=== PATIENT | female | born 1995 | race Caucasian/White ===

== ENCOUNTER 2016-07-09 09:47 | Emergency (ER) | payer SELFPAY | END 2016-07-09 12:38 | disposition home or self-care (01) | LOC: D.ER 09:47 | DX: T63.331A Toxic effect of venom of brown recluse spider, accidental (unintentional), initial encounter (principal); Y92.019 Unspecified place in single-family (private) house as the place of occurrence of the external cause ==

== ENCOUNTER 2016-08-14 09:51 | Emergency (ER) | payer MEDICAID ==
[2016-08-14 10:22] LABS: BASOPHILS 0.2 % (0.0-2.0); EOSINOPHILS 0.2 % (0-7); HEMATOCRIT 36.8 % (36.0-48.0); HEMOGLOBIN 12.5 g/dL (12-16); IMMATURE GRANULOCYTES 0.2 % (0-5); LYMPHOCYTES 24.1 % (15-50); MCH 31.6 pg (26.0-34.0); MCV 93.2 fL (80.0-100.0); MEAN PLATELET VOLUME 11.2 fL (7.4-10.4); MONOCYTES 5.5 % (2-11); NEUTROPHILS 69.8 % (40-80); PLATELET COUNT 235 10x3/uL (130-400); RBC 3.95 10x6/uL (4.00-5.40); RDW 12.4 % (11.5-14.5); WBC 9.3 10x3/uL (4.8-10.8)
[2016-08-14 10:32] LABS: UDS - AMPHET POSITIVE QUAL (NEGATIVE); UDS - BARB NEGATIVE QUAL (NEGATIVE); UDS - BENZO NEGATIVE QUAL (NEGATIVE); UDS - COCAINE POSITIVE QUAL (NEGATIVE); UDS - METH NEGATIVE QUAL (NEGATIVE); UDS - OPIATE NEGATIVE QUAL (NEGATIVE); UDS - PCP NEGATIVE QUAL (NEGATIVE); UDS - THC NEGATIVE QUAL (NEGATIVE)
[2016-08-14 10:42] LABS: ALBUMIN 3.3 g/dL (3.4-5.0); ALKALINE PHOSPHATASE 55 U/L (46-116); ALT (SGPT) 17 U/L (10-68); BILIRUBIN - TOTAL 0.57 mg/dL (0.2-1.3); CALC OSMOLALITY 274 mosm/kg (275-300); CALCIUM 9.1 mg/dL (8.5-10.1); CARBON DIOXIDE 16.4 mmol/L (21.0-32.0); CHLORIDE - SERUM 103 mmol/L (98-107); CREATININE - SERUM 0.6 mg/dL (0.6-1.3); PROTEIN - SERUM 7.7 g/dL (6.4-8.2); SODIUM 139 mmol/L (136-145); UREA NITROGEN 10 mg/dL (7-18); eGFR NON AFRICAN AMERICAN > 90 mL/min (90-120)
[2016-08-14 10:44] LABS: GLUCOSE 61 mg/dL (74-106)
[2016-08-14 11:30] LABS: APPEARANCE HAZY (CLEAR); COLOR YELLOW (YELLOW)
[2016-08-14 11:31] LABS: AMORPHOUS SEDIMENT <1+ /lpf (NONE SEEN); BACTERIA MODERATE /hpf (NONE SEEN); MUCUS <1+ /lpf (NONE SEEN); RED CELLS - URINE OCC /hpf (0-5)
[2016-08-14 11:32] LABS: BILIRUBIN NEGATIVE (NEGATIVE); GLUCOSE NEGATIVE (NEGATIVE); KETONE LARGE mg/dL (NEGATIVE); LEUKOCYTE ESTERASE 1+ (NEGATIVE); NITRITE NEGATIVE (NEGATIVE); PROTEIN TRACE mg/dL (NEGATIVE); UROBILINOGEN NORMAL (NORMAL)
== END 2016-08-14 16:35 | disposition home or self-care (01) ==
LOC: D.ER 09:51 → D.LDO 09:51 → EDSTATUS 13:06 → D.ER 16:35 → EDSTATUS 18:22
PROVIDERS: Emergency Medicine
DX: T43.625A Adverse effect of amphetamines, initial encounter (principal); Y92.410 Unspecified street and highway as the place of occurrence of the external cause; F12.10 Cannabis abuse, uncomplicated

== ENCOUNTER → 2016-11-06 20:03 | Outpatient (CLI) | payer MEDICAID ==
[2016-11-06 20:44] LABS: APPEARANCE CLEAR (CLEAR); BILIRUBIN NEGATIVE (NEGATIVE); COLOR YELLOW (YELLOW); GLUCOSE NEGATIVE (NEGATIVE); KETONE NEGATIVE (NEGATIVE); LEUKOCYTE ESTERASE 1+ (NEGATIVE); NITRITE NEGATIVE (NEGATIVE); PROTEIN NEGATIVE (NEGATIVE); UROBILINOGEN NORMAL (NORMAL)
[2016-11-06 20:45] LABS: BACTERIA MANY /hpf (NONE SEEN); EPITHELIAL CELLS 0-5 /hpf (0-5); RED CELLS - URINE 0-5 /hpf (0-5); WHITE CELLS - URINE 0-5 /hpf (0-5)
== END | disposition home or self-care (01) ==
LOC: D.LDO 20:03
PROVIDERS: Obstetrics & Gynecology
DX: O26.893 Other specified pregnancy related conditions, third trimester (principal); Z3A.34 34 weeks gestation of pregnancy

== ENCOUNTER 2016-11-23 20:35 | Outpatient (CLI) | payer MEDICAID ==
[2016-11-23 21:09] LABS: APPEARANCE CLOUDY (CLEAR); BILIRUBIN NEGATIVE (NEGATIVE); COLOR YELLOW (YELLOW); GLUCOSE NEGATIVE (NEGATIVE); KETONE NEGATIVE (NEGATIVE); LEUKOCYTE ESTERASE 1+ (NEGATIVE); NITRITE NEGATIVE (NEGATIVE); PROTEIN NEGATIVE (NEGATIVE); SPECIFIC GRAVITY 1.015 (1.005-1.020); UROBILINOGEN NORMAL (NORMAL)
[2016-11-23 21:10] LABS: UDS - AMPHET NEGATIVE QUAL (NEGATIVE); UDS - BARB NEGATIVE QUAL (NEGATIVE); UDS - BENZO NEGATIVE QUAL (NEGATIVE); UDS - COCAINE NEGATIVE QUAL (NEGATIVE); UDS - METH NEGATIVE QUAL (NEGATIVE); UDS - OPIATE NEGATIVE QUAL (NEGATIVE); UDS - PCP NEGATIVE QUAL (NEGATIVE); UDS - THC POSITIVE QUAL (NEGATIVE)
[2016-11-23 21:11] LABS: BACTERIA MODERATE /hpf (NONE SEEN); EPITHELIAL CELLS 0-5 /hpf (0-5); RED CELLS - URINE NONE SEEN /hpf (0-5); WHITE CELLS - URINE 0-5 /hpf (0-5)
== END 2016-11-23 21:46 | disposition home or self-care (01) ==
LOC: D.LDO 20:35
PROVIDERS: Obstetrics & Gynecology
DX: O36.8130 Decreased fetal movements, third trimester, not applicable or unspecified (principal); Z3A.36 36 weeks gestation of pregnancy; M54.9 Dorsalgia, unspecified

== ENCOUNTER → 2016-12-19 09:57 | Outpatient (CLI) | payer MEDICAID ==
[2016-12-20 08:53] VITALS: BMI 21.3
== END | disposition home or self-care (01) ==
LOC: D.LDO 09:57
DX: O36.8130 Decreased fetal movements, third trimester, not applicable or unspecified (principal); Z3A.40 40 weeks gestation of pregnancy

== ENCOUNTER 2016-12-20 04:59 | Inpatient (IN) | payer MEDICAID ==
[~2016-12-20] VITALS: Ht 198.1 cm; Wt 83.9 kg
[2016-12-20 05:26] VITALS: BP 123/76; BMI 21.4
[2016-12-20 06:42] LABS: HEMATOCRIT 33.2 % (36.0-48.0); MCH 29.4 pg (26.0-34.0); MCHC 33.1 g/dL (31.0-37.0); MCV 88.8 fL (80.0-100.0); MEAN PLATELET VOLUME 12.9 fL (7.4-10.4); RBC 3.74 10x6/uL (4.00-5.40); RDW 14.1 % (11.5-14.5); WBC 11.2 10x3/uL (4.8-10.8)
[2016-12-20 07:57] LABS: UDS - AMPHET NEGATIVE QUAL (NEGATIVE); UDS - BARB NEGATIVE QUAL (NEGATIVE); UDS - BENZO NEGATIVE QUAL (NEGATIVE); UDS - COCAINE NEGATIVE QUAL (NEGATIVE); UDS - METH NEGATIVE QUAL (NEGATIVE); UDS - OPIATE NEGATIVE QUAL (NEGATIVE); UDS - PCP NEGATIVE QUAL (NEGATIVE); UDS - THC POSITIVE QUAL (NEGATIVE)
[2016-12-20 08:53] VITALS: Ht 198.1 cm; Wt 83.9 kg
--- NOTE | 2016-12-20 19:20 | NUR ---
RN TO PT BS FOR GEMMA. PT RESTING IN BED IN SEMI-FOWLERS POSITION, HOLDING , IN NO ACUTE DISTRESS. PT IS A 21YO G2 NOW P2 WITH OF VIABLE MALE INFANT TODAY @1614. INFANT @ 40.1 WKS GESTATION. PT WITH NO LACERATION OR EPIS. AAOX3. HR REGULAR. LUNGS CTAB. ABDOMEN SOFT AND NON TENDER. BS ACTIVE TIMES 4. FUNDUS FIRM AND ML @ U/-1. LOCHIA RUBRA SCANT. PERINIUM APPEARS TO BE INTACT. MASON PAD AND PANTIES IN PLACE. PT DENIES DIFFICULTY VOIDING. STATES SHE HAS PASSED GAS BUT HAS NOT HAD A BM SINCE . NO SWELLING NOTED TO UPPER OR LOWER EXTREMITIES BILATERALLY. 18G IV IN PLACE TO RIGHT FA. FLUSHED WITH 5CC NS WITHOUT DIFFICULTY. NO REDNESS OR EDEMA NOTED TO SITE. PT C/O PAIN, RATES 6/10, REQUESTS MEDICATION. IBUPROFEN PROVIDED TO PT AT THIS TIME. PT DENIES ANY FURTHER NEEDS. ASSISTED MOTHER POSITIONING FOR BREASTFEED. QUESTIONS ANSWERED. BED IN LOW POSITION, SIDE RAILS UP TIMES 2, CALL LIGHT AND PHONE IN REACH. WILL CONT TO MONITOR PT STATUS.
[2016-12-20 19:36] VITALS: BP 127/71
--- NOTE | 2016-12-20 20:30 | NUR ---
RN TO MOTHER'S BS FOR TRANSITION ASSESSMENT ON . MOTHER SITTING IN BED, HOLDING , IN NO ACUTE DISTRESS. MOTHER STATES SHE WAS UNABLE TO BREASTFEED AND WOULD LIKE TO GIVE INFANT A BOTTLE. FORMULA PROVIDED TO MOTHER AT THIS TIME. MOTHER DENIES ANY FURTHER NEEDS. BED IN LOW POSITION, SIDE RAILS UP TIMES 2, CALL LIGHT AND PHONE IN REACH. SO REMAINS AT PT BS FOR SUPPORT AND ASSISTANCE. REMAINS AT PT BS FOR COUPLET CARE. WILL CONT TO MONITOR PT STATUS.
--- NOTE | 2016-12-20 21:55 | NUR ---
RECEIVED REPORT FROM DARCY MONTANEZ RN
--- NOTE | 2016-12-20 22:09 | NUR ---
ROUNDS MADE, PT EATING TACO RIOS, C/O BACK PAIN, ADM DEMEROL PO PER MD ORDERS, SEE EMAR, PT DENIES FURTHER NEEDS, BEDDING PROVIDED TO FOB, BABY AT BEDSIDE IN OPEN CRIB CART
--- NOTE | 2016-12-20 23:26 | NUR ---
PT BABY, REPORTS STARTING AT 2315, BABY IS LATCHED ON WELL AT THIS TIME, BOTTLE PROVIDED IF NEEDED, PT RATES BACK PAIN 2/10, STATES "IT'S DOING BETTER", PT DENIES NEEDS, FOB AT BEDSIDE
--- NOTE | 2016-12-21 00:25 | NUR ---
PT UP IN ROOM, REPORTS BABY FOR 20 MINUTES, BABY STILL "FUSSY", INFORMED PT THAT NSY NURSE SAID SHE COULD PUT BABY TO BREAST IF NEEDED, PT UNDERSTANDS, DENIES NEEDS AT THIS TIME
--- NOTE | 2016-12-21 02:24 | NUR ---
PT LOVINGLY HOLDING BABY, DENIES NEEDS OR PAIN AT THIS TIME, FOB AT BEDSIDE
--- NOTE | 2016-12-21 04:25 | NUR ---
PT RESTING WITH EYES CLOSED, RESP QUIET, NO DISTRESS NOTED, LEFT UNDISTURBED AT THIS TIME, FOB AND BABY IN OPEN CRIB CART AT BEDSIDE
--- NOTE | 2016-12-21 06:23 | NUR ---
CHILD ABUSE HOTLINE CALLED AND NOTIFIED OF PT'S UDS +THC.
--- NOTE | 2016-12-21 06:38 | NUR ---
PT RESTING WITH EYES CLOSED, RESP QUIET, NO DISTRESS NOTED, LEFT UNDISTURBED AT THIS TIME, FOB AND BABY IN OPEN CRIB CART AT BEDSIDE
--- NOTE | 2016-12-21 06:42 | NUR ---
SHIFT REPORT TO DAY SHIFT
[2016-12-21 06:58] LABS: HEMATOCRIT 30.3 % (36.0-48.0); HEMOGLOBIN 9.9 g/dL (12-16); MCHC 32.7 g/dL (31.0-37.0); MCV 88.9 fL (80.0-100.0); RBC 3.41 10x6/uL (4.00-5.40); RDW 14.2 % (11.5-14.5)
[2016-12-21 07:19] LABS: RAPID PLASMA REAGIN Non Reactive (Non Reactive)
[2016-12-21 07:20] VITALS: BP 121/85
--- NOTE | 2016-12-21 07:20 | NUR ---
ASSUME CARE OF THIS PATIENT. SITTING IN SEMI-FOWLERS POSITION. IN CRIB AT BEDSIDE, FOB SLEEPING IN CHAIR. SHIFT ASSESSMENT COMPLETED. DEMEROL 50 MG GIVEN PO FOR RELIEF OF 8/10 BACKACH. UP TO SHOWER AFTER ASSESSMENT. CONSIDERING ROOMING-IN SINCE +GBS AND WILL BE HERE ANOTHER DAY.
--- NOTE | 2016-12-21 08:10 | NUR ---
COMPLETED SHOWER. LAYING IN BED WITH FOB. SAYS SHE FEELS MUCH BETTER. 2/10 ON PAIN SCALE. DENIES NEEDING ANYTHING AT THIS TIME. IN NURSERY. TO CALL IF ANYTHING IS NEEDED.
--- NOTE | 2016-12-21 09:15 | NUR ---
REPORT RECEIVED FROM TYRONE LOZANO. PT IS SITTING UP IN BED. SHE OFFERS NO COMPLAINTS. GEN- AWAKE AND ALERT. LUNGS- CLEAR. HEART- RRR. ABD SOFT. FUNDUS FIRM AT UMB. EXT- NO EDEMA NOTED. SALINE LOCK PATENT RIGHT FOREARM. BED IS LOW, SIDE RAILS UP X 2 AND CALL LIGHT IN REACH.
--- NOTE | 2016-12-21 10:15 | NUR ---
SALINE LOCK D'CD. TIP INTACT. GAUZED AND BANDAID APPLIED.
--- NOTE | 2016-12-21 10:24 | NUR ---
DISCHARGE INSTRUCTIONS DISCUSSED WITH PT. HANDOUTS GIVEN. CONSENT FOR ROOMING IN SIGNED. PRESCRIPTION GIVEN FOR HER TO GET HER MOTRIN FILLED.
== END 2016-12-21 10:30 | disposition home or self-care (01) | DRG 775 ==
LOC: D.LD 04:59
PROVIDERS: ADMIT Obstetrics & Gynecology
PROC: 10E0XZZ Delivery of Products of Conception, External Approach (ICD-10-PCS; principal; 2016-12-20)
DX: O99.334 Smoking (tobacco) complicating childbirth (principal); Z3A.40 40 weeks gestation of pregnancy; Z37.0 Single live birth; O70.0 First degree perineal laceration during delivery; O99.824 Streptococcus B carrier state complicating childbirth

== ENCOUNTER 2019-10-05 17:07 | Emergency (ER) | payer MEDICAID ==
[2016-12-20 08:53] VITALS: BMI 21.3
== END 2019-10-05 17:17 | disposition left against medical advice (07) ==
LOC: D.ER 17:07
DX: G43.909 Migraine, unspecified, not intractable, without status migrainosus (principal)